=== PATIENT | female | born 1995 | race American Indian/Alaskan Native ===

== ENCOUNTER 2017-02-14 14:55 | Emergency (ER) | payer SELFPAY ==
[2017-02-14 15:00] VITALS: BP 127/85; PULSE 86; RESP 19; TEMP 97.5; O2SAT 100
--- NOTE | 2017-02-14 15:32 | ED PDOC ---
HPI: Abdomen Time Seen by Provider: 02/14/17 15:04 Chief Complaint (Nursing): Abdominal Pain History Per: Patient (states she has had intermittent lower abdominal cramps, headache and breast tenderness over the past 2 weeks. Her LMP was 01/09/2017. She has been 2 other times and has had miscarriages with both. ) History/Exam Limitations: no limitations Onset/Duration Of Symptoms: Intermittent Episodes Outside of [place] travel?: No Severity: Mild Quality Of Discomfort: Cramping Associated Symptoms: denies: Fever, Chills, Nausea, Vomiting, Diarrhea, Loss Of Appetite, Back Pain, Chest Pain, Constipation, Urinary Symptoms Exacerbating Factors: denies: Supine, Movement, Cough, Food, Upright Position, Walking Past Medical History Reviewed: Historical Data, Nursing Documentation, Vital Signs Vital Signs: Last Vital Signs Temp 97.5 F L 02/14/17 14:58 Pulse 86 02/14/17 14:58 Resp 19 02/14/17 14:58 BP 127/85 02/14/17 14:58 Pulse Ox 100 02/14/17 14:58 - Medical History PMH: No Chronic Diseases - Family History Family History: States: Unknown Family Hx - Living Arrangements Living Arrangements: With Family - Social History Current smoker - smoking cessation education provided: No Alcohol: None Drugs: Denies - Immunization History Hx Tetanus Toxoid Vaccination: No Hx Influenza Vaccination: No Hx Pneumococcal Vaccination: No - Home Medications Home Medications: Ambulatory Orders Medication Instructions Recorded Multivit/Folic Acid/I 1 tab PO DAILY #30 tab 06/30/16 [ Plus] Multivit/Folic Acid/I 1 tab PO DAILY #30 tab 02/14/17 [] - Allergies Allergies/Adverse Reactions: Allergies Allergy/AdvReac Type Severity Reaction Status Date / Time No Known Allergies Allergy Verified 02/14/17 14:58 Review of Systems ROS Statement: Except As Marked, All Systems Reviewed And Found Negative Constitutional: Negative for: Fever, Chills Gastrointestinal: Positive for: Abdominal Pain. Negative for: Nausea, Vomiting Genitourinary Female: Negative for: Dysuria, Vaginal Discharge, Vaginal Bleeding Musculoskeletal: Negative for: Neck Pain Physical Exam - Reviewed Nursing Documentation Reviewed: Yes Vital Signs Reviewed: Yes - Physical Exam Appears: Positive for: Well, Non-toxic, No Acute Distress Head Exam: Positive for: ATRAUMATIC, NORMAL INSPECTION, NORMOCEPHALIC Skin: Positive for: Normal Color, Warm, DRY Eye Exam: Positive for: EOMI, Normal appearance, PERRL ENT: Positive for: Normal ENT Inspection Neck: Positive for: Normal, Painless ROM Cardiovascular/Chest: Positive for: Regular Rate, Rhythm Respiratory: Positive for: CNT, Normal Breath Sounds Gastrointestinal/Abdominal: Positive for: Normal Exam, Bowel Sounds, Soft Back: Positive for: Normal Inspection Extremity: Positive for: Normal ROM Neurologic/Psych: Positive for: Alert, Oriented - ECG O2 Sat by Pulse Oximetry: 100 Medical Decision Making Medical Decision Making: advised patient that followup with [facility] is indicated and the ultrasound will be unable to confirm viability. Disposition - Clinical Impression Clinical Impression: - Patient ED Disposition Is Patient to be Admitted: No Doctor Will See Patient In The: Office Counseled Patient/Family Regarding: Diagnosis, Need For Followup, Rx Given - Disposition [facility] [Outside] [facility] [Outside] Disposition: Routine/Home Disposition Time: 15:42 Condition: STABLE Prescriptions: Multivit/Folic Acid/I [] 1 tab PO DAILY #30 tab Instructions: First Trimester (ED)
== END 2017-02-14 15:40 | disposition home or self-care (01) ==
LOC: H.ER 14:55
DX: O26.899 Other specified pregnancy related conditions, unspecified trimester (principal); R10.30 Lower abdominal pain, unspecified

== ENCOUNTER 2017-04-17 18:48 | Emergency (ER) | payer MEDICAID ==
[2017-04-17 19:47] VITALS: RESP 16; TEMP 98
[2017-04-17 20:52] LABS: BASO % 0.6 % (0.0-2.0); EOS % 0.6 % (0.0-4.0); HEMATOCRIT 35.3 % (34.0-47.0); LYMPH % 25.3 % (20.0-40.0); MEAN CELL VOLUME 89.7 fl (81.0-99.0); MEAN CORPUSCULAR HEMOGLOBIN 29.8 pg (27.0-31.0); MEAN CORPUSCULAR HGB CONC 33.3 g/dL (33.0-37.0); MONO # 0.4 K/uL (0.0-0.8); MONO % 5.4 % (0.0-10.0); NEUT # 5.3 K/uL (1.8-7.0); NEUT % 68.1 % (50.0-75.0); RED CELL DISTRIBUTION WIDTH 14.2 % (11.5-14.5); WHITE BLOOD COUNT 7.7 K/uL (4.8-10.8)
[2017-04-17 21:04] LABS: RBC URINE 4 /hpf (0-3); URINE BACTERIA RARE (<OCC); URINE BILIRUBIN NEGATIVE (NEGATIVE); URINE BLOOD NEGATIVE (NEGATIVE); URINE COLOR YELLOW (YELLOW); URINE GLUCOSE (UA) NEG (Normal); URINE KETONE NEGATIVE (NEGATIVE); URINE LEUKOCYTE ESTERASE NEG Leu/uL (Negative); URINE PROTEIN 30 mg/dL (NEGATIVE); URINE UROBILINOGEN 0.2-1.0 mg/dL (0.2-1.0); WBC URINE 3 /hpf (0-5)
[2017-04-17 21:09] LABS: ALB/GLOB RATIO 1.4 (1.0-2.1); ALKALINE PHOSPHATASE 26 U/L (38-126); ALT/SGPT 21 U/L (9-52); AST/SGOT 19 U/L (14-36); BILIRUBIN,TOTAL 0.4 mg/dl (0.2-1.3); BLOOD UREA NITROGEN 12 mg/dl (7-17); CALCIUM 9.4 mg/dL (8.4-10.2); CARBON DIOXIDE 22 mmol/L (22-30); CHLORIDE 105 mmol/L (98-107); GFR AFRICAN-AMERICAN > 60; GLUCOSE,RANDOM 100 mg/dL (65-105); POTASSIUM 4.1 MMOL/L (3.6-5.0); SODIUM 137 mmol/l (132-148); TOTAL PROTEIN 6.8 G/DL (6.3-8.2)
--- NOTE | 2017-04-17 21:25 | ED PDOC ---
HPI: Abdomen Time Seen by Provider: 04/17/17 20:00 Chief Complaint (Nursing): Female Genitourinary Chief Complaint (Provider): Abdominal Pain History Per: Patient History/Exam Limitations: no limitations Onset/Duration Of Symptoms: Days (2 days ago) Outside of [place] travel?: No Current Symptoms Are (Timing): Still Present Severity: Moderate Pain Scale Rating Of: 8 Location Of Pain/Discomfort: Epigastric Associated Symptoms: Nausea. denies: Vomiting, Diarrhea, Urinary Symptoms, Other (vaginal bleeding or discharge) Additional Complaint(s): Samreen Sosa is a 21 year old female, with a past medical history of gastritis, who presents to the emergency department for the evaluation of upper abdominal pain, that the patient has been experiencing for the past 2 days. Pain was initially descried as an 8/10 in severity, that has since then subsided to a 5/10. Patient states that she had an ultrasound performed 2 weeks ago, which came back normal. Associated nausea is currently present. Denies vomiting, diarrhea, urinary symptoms, vaginal bleeding, or vaginal discharge. Of note, patient's estimated gestational age is 14 weeks. Last known menstrual period was on 01/12/17. , P:0. PMD: none specified Abnormal Vaginal Bleeding: No Last Menstral Period: 01/12/17 : 1 Para: 0 Past Medical History Reviewed: Historical Data, Nursing Documentation, Vital Signs Vital Signs: Last Vital Signs Temp 98.0 F 04/17/17 19:45 Pulse 75 04/17/17 23:25 Resp 16 04/17/17 23:25 BP 115/80 04/17/17 23:25 Pulse Ox 99 04/18/17 00:26 - Medical History PMH: Gastritis - Surgical History Surgical History: No Surg Hx - Family History Family History: States: No Known Family Hx - Immunization History Hx Tetanus Toxoid Vaccination: No Hx Influenza Vaccination: No Hx Pneumococcal Vaccination: No - Home Medications Home Medications: Ambulatory Orders Medication Instructions Recorded Multivit/Folic Acid/I 1 tab PO DAILY #30 tab 06/30/16 [ Plus] Multivit/Folic Acid/I 1 tab PO DAILY #30 tab 02/14/17 [] - Allergies Allergies/Adverse Reactions: Allergies Allergy/AdvReac Type Severity Reaction Status Date / Time No Known Allergies Allergy Verified 02/14/17 14:58 Review of Systems ROS Statement: Except As Marked, All Systems Reviewed And Found Negative Gastrointestinal: Positive for: Nausea, Abdominal Pain (upper). Negative for: Vomiting, Diarrhea Genitourinary Female: Negative for: Dysuria, Hematuria, Vaginal Discharge, Vaginal Bleeding Physical Exam - Reviewed Nursing Documentation Reviewed: Yes Vital Signs Reviewed: Yes - Physical Exam Appears: Positive for: Well, Non-toxic, No Acute Distress Head Exam: Positive for: ATRAUMATIC, NORMAL INSPECTION, NORMOCEPHALIC Skin: Positive for: Normal Color, Warm, Dry Eye Exam: Positive for: EOMI, Normal appearance, PERRL Cardiovascular/Chest: Positive for: Regular Rate, Rhythm. Negative for: Murmur Respiratory: Positive for: Normal Breath Sounds. Negative for: Respiratory Distress Gastrointestinal/Abdominal: Positive for: Normal Exam, Soft, Tenderness ( epigastric) Back: Positive for: Normal Inspection. Negative for: L CVA Tenderness, R CVA Tenderness Neurologic/Psych: Positive for: Alert, Oriented - Laboratory Results Result Diagrams: 04/17/17 20:45 04/17/17 20:45 - ECG O2 Sat by Pulse Oximetry: 99 (RA) Pulse Ox Interpretation: Normal Medical Decision Making Medical Decision Makin:00 Initial Impression: 21 year old female with epigastric abdominal pain and known setting of , pending labs and ultrasound. Initial Plan: * OB Transvaginal Ultrasound * CBC * CMP * Beta-HCG, Quantitative * Urine Dip * Urine * Urinalysis * Reevaluation 21:00 Patient declines Analgesics. FINDINGS: Gestation: There is a single living intrauterine gestation with heart rate of 156 beats per minute.Gestational sac has mean diameter 73.4 mm. [place]-rump length measures 62.8 mm. A yolk sac is present, internal diameter measures approximately 5 mm. Uterus: Accurate measurements of the uterus could not be obtained. Cervix measures approximately 5 cm in length. Adnexa: Neither ovary could be identified. IMPRESSION: 12 week 5 day single living intrauterine gestation, estimated date of delivery 10/25/17 Provider discussed the ultrasound findings with the patient provider. The patient reports to her symptoms being relieved but reports having abdominal pain with . Diagnosis Abdominal Pain in Condition Stable Patient to follow with her Ob in 2-3 days Scribe Attestation: Documented by Samm Felix, acting as a scribe for Brian Boateng MD. Provider Scribe Attestation: All medical record entries made by the Scribe were at my direction and personally dictated by me. I have reviewed the chart and agree that the record accurately reflects my personal performance of the history, physical exam, medical decision making, and the department course for this patient. I have also personally directed, reviewed, and agree with the discharge instructions and disposition. Disposition - Clinical Impression Clinical Impression: Abdominal pain during , Gastritis - Patient ED Disposition Is Patient to be Admitted: No - Disposition Disposition: Routine/Home Disposition Time: 22:00 Condition: STABLE Instructions: Gastritis (ED), Abdominal Pain in (ED)
--- NOTE | 2017-04-17 22:57 | US ---
EXAM: US First Trimester, Transabdominal CLINICAL HISTORY: 21 years old, female; Pain; Other: Abd pain/nausea; Gestational age or lmp: 01/14/17; TECHNIQUE: Real-time transabdominal obstetrical ultrasound of the maternal pelvis and a first trimester with image documentation. EXAM DATE/TIME: 04/17/2017 8:32 PM COMPARISON: There are no prior studies for comparison. FINDINGS: Gestation: There is a single living intrauterine gestation with heart rate of 156 beats per minute.Gestational sac has mean diameter 73.4 mm. [place]-rump length measures 62.8 mm. A yolk sac is present, internal diameter measures approximately 5 mm. Uterus: Accurate measurements of the uterus could not be obtained. Cervix measures approximately 5 cm in length. Adnexa: Neither ovary could be identified. IMPRESSION: 12 week 5 day single living intrauterine gestation, estimated date of delivery 10/25/17
[2017-04-17 23:26] VITALS: BP 115/80; PULSE 75
[2017-04-18 00:05] VITALS: O2SAT 99
== END 2017-04-17 23:25 | disposition home or self-care (01) ==
LOC: H.ER 18:48
DX: O26.899 Other specified pregnancy related conditions, unspecified trimester (principal); K29.70 Gastritis, unspecified, without bleeding; O21.9 Vomiting of pregnancy, unspecified